=== PATIENT | male | born 1955 | race Caucasian/White ===

== ENCOUNTER 2024-04-24 14:49 | Emergency (ER) | payer BC, MEDICARE, SELFPAY ==
[2024-04-24 14:56] VITALS: BP 155/83; PULSE 79; RESP 16; TEMP 36.8; O2SAT 98; BMI 24.1
--- NOTE | 2024-04-24 16:08 | DI.US.S_ITS ---
PROCEDURE: US PERIPH VENOUS UP EXTREM LT INDICATIONS: RECENT IV LEFT FOREARM FOR CHEMOTHERAPY TECHNIQUE: Real-time imaging, as well as color and pulse Doppler interrogation, was performed of the upper extremity deep veins from the inferior neck to the antecubital fossa. COMPARISON: None. Findings and impression: Occlusive thrombus is seen in the proximal to distal forearm in the cephalic vein. Occlusive thrombus also seen in the distal upper arm in one of the brachial vein. Incidentally noted calcific plaque at the left common carotid artery bifurcation. Soft tissue edema is seen in the forearm. Dictated by: Varun Campos M.D. on 04/24/2024 at 18:01 Approved by: Varun Campos M.D. on 04/24/2024 at 18:03
--- NOTE | 2024-04-24 16:13 | ED_ITS ---
HPI - Extremity Problem <Donna Hutchison PA-C - Last Filed: 04/24/24 19:16> General Chief complaint: Extremity Problem,Nontraumatic Stated complaint: poss blood clot l arm Time Seen by Provider: 04/24/24 15:10 History of Present Illness HPI Narrative: Mr. Delong his a very pleasant 69-year-old male with a past medical history of lung cancer being treated at [facility] who presents to the emergency department for left forearm red, swelling, firmness x3 days. Patient had chemotherapy infusion in the left forearm 04/15/2024. He had no issues until a few days ago he noticed the redness/swelling. His reports that it was warm however at this time the heat has improved. Denies fevers, chills, decreased range of motion, chest pain, shortness of breath. He denies any other symptoms and feels overall in his normal state of health. He does have a remote history of left lower extremity VTE that he was placed on asprin for many years ago. 04/15/2024 chemotherapy was Carboplatin (paraplatin 623mg infusion) and Pemetrex (alimta 1000mg). Related Data Previous Rx's Medication Instructions Recorded apixaban 5 mg tablet (Eliquis) 5 mg PO BID #60 tabs 04/24/24 Review of Systems <Donna Hutchison PA-C - Last Filed: 04/24/24 19:16> Review of Systems ROS Unobtainable: All systems reviewed & are unremarkable except as noted in HPI and below Exam <Donna Hutchison PA-C - Last Filed: 04/24/24 19:16> Narrative Exam Narrative: GENERAL: 69 year old patient appears stated age. Well-developed patient, in no acute distress. HEAD: Atraumatic. Normocephalic. CARDIOVASCULAR: Regular rate. Strong radial puls BL. RESPIRATORY: ?Nonlabored respirations. ?Speaking in clear, full sentences. EXTREMITIES: Left forearm palmar aspect with an area of mild erythema and induration/firm to palpation about 10cm x 5 cm NEURO: AOx3. ?Clear speech. ?Moves all 4 extremities appropriately. 5/5 bilateral strength and sensation intact to light touch in the distribution of the radial, ulnar, median nerves. SKIN: Erythema palmar left forearm, no streaking erythema, no increased warmth. No other rashes noted. Initial Vital Signs Initial Vital Signs: Vital Signs Temperature 98.3 F 04/24/24 14:56 Pulse Rate 79 04/24/24 14:56 Respiratory Rate 16 04/24/24 14:56 Blood Pressure 155/83 H 04/24/24 14:56 Pulse Oximetry 98 04/24/24 14:56 Oxygen Delivery Method Room Air 04/24/24 14:56 <Mai Collado MD - Last Filed: 04/24/24 23:10> Initial Vital Signs Initial Vital Signs: Vital Signs Temperature 98.3 F 04/24/24 14:56 Pulse Rate 79 04/24/24 14:56 Respiratory Rate 16 04/24/24 14:56 Blood Pressure 155/83 H 04/24/24 14:56 Pulse Oximetry 98 04/24/24 14:56 Oxygen Delivery Method Room Air 04/24/24 14:56 Course <Donna Hutchison PA-C - Last Filed: 04/24/24 19:16> Orders Ordered: ED Orders 04/24/24 16:08 US periph venous up extrem lt Stat 04/24/24 19:15 BMP [Basic Metabolic Panel] Stat CBC Auto Diff [Complete Blood Count AUTO DIFF] Stat Discontinued Medications Apixaban (Apixaban 5 Mg Tablet) 10 mg PO NOW ONE Stop: 04/24/24 19:45 Last Admin: 04/24/24 19:58 Dose: 10 mg Documented By: CHHAYA Vital Signs Vital signs: Vital Signs - 8 hr 04/24/24 20:00 Pulse Rate 78 Blood Pressure 154/83 H Pulse Oximetry 94 Oxygen Delivery Method Room Air <Mai Collado MD - Last Filed: 04/24/24 23:10> Orders Ordered: ED Orders 04/24/24 16:08 US periph venous up extrem lt Stat 04/24/24 19:15 BMP [Basic Metabolic Panel] Stat CBC Auto Diff [Complete Blood Count AUTO DIFF] Stat Discontinued Medications Apixaban (Apixaban 5 Mg Tablet) 10 mg PO NOW ONE Stop: 04/24/24 19:45 Last Admin: 04/24/24 19:58 Dose: 10 mg Documented By: CHHAYA Vital Signs Vital signs: Vital Signs - 8 hr 04/24/24 20:00 Pulse Rate 78 Blood Pressure 154/83 H Pulse Oximetry 94 Oxygen Delivery Method Room Air MDM - Extremity (Nontraumatic) <Donna Hutchison PA-C - Last Filed: 04/24/24 19:16> Medical Records Medical records narrative: No records available for review. Lab Data 04/24/24 19:15 04/24/24 19:15 Labs: Lab Results 04/24/24 Range/Units 19:15 WBC 3.4 L (4.5-11.0) X10^3/uL RBC 3.38 L (4.5-5.9) X10^6/uL Hgb 10.5 L (13.5-17.5) g/dL Hct 30.6 L (41-53) % MCV 90.5 (80-100) fL MCH 31.1 (26-34) PG MCHC 34.3 (30-36) % RDW 18.1 H (11.6-14.8) % Plt Count 205 (150-400) X10^3/uL Neut % (Auto) 28.4 L (50-75) % Lymph % (Auto) 40.3 H (25-40) % [place] % (Auto) 29.8 H (3-14) % Eos % (Auto) 0.6 L (2-4) % Baso % (Auto) 0.9 (0-2) % Neut # (Auto) 1000 L (5203-9618) /uL Lymph # (Auto) 1400 (5441-7751) /uL [place] # (Auto) 1000 H (0-900) /uL Eos # (Auto) 0 (0-450) /uL Baso # (Auto) 0 (0-100) /uL Sodium 134 L (137-145) mmol/L Potassium 4.8 (3.4-5.1) mmol/L Chloride 101 (98-107) mmol/L Carbon Dioxide 26 (22-32) mmol/L BUN 20 (9-20) mg/dL Creatinine 0.91 (0.66-1.25) mg/dL Estimated GFR > 60 (>60) mL/min BUN/Creatinine Ratio 22.0 (6-22) Glucose 88 (80-110) mg/dL Calcium 9.2 (8.4-10.2) mg/dL Imaging Data Left US Venous US: Radiologist's Impression: PROCEDURE: US PERIPH VENOUS UP EXTREM LT INDICATIONS: RECENT IV LEFT FOREARM FOR CHEMOTHERAPY TECHNIQUE: Real-time imaging, as well as color and pulse Doppler interrogation, was performed of the upper extremity deep veins from the inferior neck to the antecubital fossa. COMPARISON: None. Findings and impression: Occlusive thrombus is seen in the proximal to distal forearm in the cephalic vein. Occlusive thrombus also seen in the distal upper arm in one of the brachial vein. Incidentally noted calcific plaque at the left common carotid artery bifurcation. Soft tissue edema is seen in the forearm. MDM Narrative Medical decision making narrative: 69-year-old male with a past medical history of lung cancer being treated at [facility] who presents to the emergency department for left forearm red, swelling, firmness x3 days. He had an IV/chemo in left forearm 04/15/24. 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 Differential diagnosis includes but is not limited to left arm DVT, hematoma, cellulitis, etc. On exam the patient is in no acute distress, nontoxic appearing, vital signs appropriate. On the palmar aspect of his left forearm he has an area erythema that is firm to palpation. No chest pain, no shortness of breath, no fevers. He denies need for pain medication at this time. Venous ultrasound left upper extremity ordered. Patient declines need for pain medication. Ultrasound report reveals: occlusive thrombus in the proximal to distal forearm in the cephalic vein and occlusive thrombus seen in the distal upper arm in one of the brachial veins. Ultrasound report was printed and discussed with the patient including incidental findings. Attending ED physician consulted, Dr. Collado. We will check CBC, BMP prior to initiation of Eliquis as patient has no labs on file. Patient is agreeable to the initiation of Eliquis. He denies any history of hemorrhagic stroke, recent surgery, black or bloody stool, hematuria, recent trauma, any other bleeding concerns. We discussed risks and benefits of anticoagulation. Advised patient follow up with his primary care doctor in his oncologist for further evaluation. Due to shift change, nighttime physician Dr. Collado we will review the patient's lab work and determine disposition. <Mai Collado MD - Last Filed: 04/24/24 23:10> Lab Data Labs: Lab Results 04/24/24 Range/Units 19:15 WBC 3.4 L (4.5-11.0) X10^3/uL RBC 3.38 L (4.5-5.9) X10^6/uL Hgb 10.5 L (13.5-17.5) g/dL Hct 30.6 L (41-53) % MCV 90.5 (80-100) fL MCH 31.1 (26-34) PG MCHC 34.3 (30-36) % RDW 18.1 H (11.6-14.8) % Plt Count 205 (150-400) X10^3/uL Neut % (Auto) 28.4 L (50-75) % Lymph % (Auto) 40.3 H (25-40) % [place] % (Auto) 29.8 H (3-14) % Eos % (Auto) 0.6 L (2-4) % Baso % (Auto) 0.9 (0-2) % Neut # (Auto) 1000 L (4612-3870) /uL Lymph # (Auto) 1400 (8862-9101) /uL [place] # (Auto) 1000 H (0-900) /uL Eos # (Auto) 0 (0-450) /uL Baso # (Auto) 0 (0-100) /uL Sodium 134 L (137-145) mmol/L Potassium 4.8 (3.4-5.1) mmol/L Chloride 101 (98-107) mmol/L Carbon Dioxide 26 (22-32) mmol/L BUN 20 (9-20) mg/dL Creatinine 0.91 (0.66-1.25) mg/dL Estimated GFR > 60 (>60) mL/min BUN/Creatinine Ratio 22.0 (6-22) Glucose 88 (80-110) mg/dL Calcium 9.2 (8.4-10.2) mg/dL [facility] Narrative Medical decision making narrative: 69-year-old male with a past medical history of lung cancer being treated at [facility] who presents to the emergency department for left forearm red, swelling, firmness x3 days. He had an IV/chemo in left forearm 04/15/24. 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 Differential diagnosis includes but is not limited to left arm DVT, hematoma, cellulitis, etc. On exam the patient is in no acute distress, nontoxic appearing, vital signs appropriate. On the palmar aspect of his left forearm he has an area erythema that is firm to palpation. No chest pain, no shortness of breath, no fevers. He denies need for pain medication at this time. Venous ultrasound left upper extremity ordered. Patient declines need for pain medication. Ultrasound report reveals: occlusive thrombus in the proximal to distal forearm in the cephalic vein and occlusive thrombus seen in the distal upper arm in one of the brachial veins. Ultrasound report was printed and discussed with the patient including incidental findings. Attending ED physician consulted, Dr. Collado. We will check CBC, BMP prior to initiation of Eliquis as patient has no labs on file. Patient is agreeable to the initiation of Eliquis. He denies any history of hemorrhagic stroke, recent surgery, black or bloody stool, hematuria, recent trauma, any other bleeding concerns. We discussed risks and benefits of anticoagulation. Advised patient follow up with his primary care doctor in his oncologist for further evaluation. Due to shift change, nighttime physician Dr. Collado we will review the patient's lab work and determine disposition. Dr. Collado -care of patient is signed out to me by daytime PA. independent review of patient and chart performed by myself. Ultrasound did confirm upper extremity DVT. On exam patient's compartments are soft, he was no pain with range of motion of his wrist or arm. Laboratory work shows no abnormalities with kidney or liver enzymes. Patient and informed of lab and imaging findings at bedside. Initial dose of Eliquis given to patient in the emergency department and prescription sent to pharmacy of choice. He was given an Eliquis discount card. He has upcoming appointments with his oncologist next week. Discharge Plan Departure Patient Disposition: Home Clinical Impression: Deep venous thrombosis of upper extremity Qualifiers: Affected thrombotic vein of extremity: brachial Chronicity: acute Laterality: l eft Qualified Code(s): I82.622 - Acute embolism and thrombosis of deep veins of left upper extremity Acute thrombosis of cephalic vein Qualifiers: Laterality: left Qualified Code(s): I82.612 - Acute embolism and thrombosis of superficial veins of left upper extremity Instructions: DI for Deep Vein Thrombosis Activity Restrictions/Additional Instructions: You have a blood clot in your left leg. Take the blood thinner as prescribed. This will put you at increased risk of bleeding and bruising. If you injure your head or any other part of your body please come back to the ER for repeat evaluation. If you notice bleeding in your urine or stools please come back for evaluation. Otherwise continue to follow up with your oncologist as scheduled. Prescriptions: New Eliquis 5 mg tablet 5 mg PO BID Qty: 60 0RF Rx Instructions: take 10mg po BID for 7 days, and then 5mg po BID onwards Stand Alone Forms: Patient Portal/API/Survey
[2024-04-24 19:23] LABS: Add Manual Diff / Slide Review NO; Basophils Absolute Auto 0 /uL (0-100); Basophils Percent Auto 0.9 % (0-2); Eosinophils Absolute Auto 0 /uL (0-450); Eosinophils Percent Auto 0.6 % (2-4); Hematocrit 30.6 % (41-53); Hemoglobin 10.5 g/dL (13.5-17.5); Lymphocytes Absolute Auto 1400 /uL (1100-4500); Lymphocytes Percent Auto 40.3 % (25-40); Mean Corpuscular HGB Conc 34.3 % (30-36); Mean Corpuscular Hemoglobin 31.1 PG (26-34); Mean Corpuscular Volume 90.5 fL (80-100); Monocytes Absolute Auto 1000 /uL (0-900); Monocytes Percent Auto 29.8 % (3-14); Neutrophils Absolute Auto 1000 /uL (1500-7000); Neutrophils Percent Auto 28.4 % (50-75); Platelet Count 205 X10^3/uL (150-400); Red Blood Cell Count 3.38 X10^6/uL (4.5-5.9); Red Cell Distribution Width 18.1 % (11.6-14.8); White Blood Cell Count 3.4 X10^3/uL (4.5-11.0)
[2024-04-24 19:34] LABS: Blood Urea Nitrogen 20 mg/dL (9-20); Calcium 9.2 mg/dL (8.4-10.2); Carbon Dioxide 26 mmol/L (22-32); Chloride 101 mmol/L (98-107); Estimated Glomerular Filt Rate > 60 mL/min (>60); Glucose 88 mg/dL (80-110); HEMOLYSIS < 15 (0-50); Potassium 4.8 mmol/L (3.4-5.1); Sodium 134 mmol/L (137-145)
[2024-04-24] MEDS: APIXABAN 5 MG TABLET 10 MG PO (19:58)
[2024-04-24 20:00] VITALS: BP 154/83; PULSE 78; O2SAT 94
== END 2024-04-24 20:00 | disposition home or self-care (01) ==
PROVIDERS: Emergency Provider Physician Assistant
DX: I82.622 Acute embolism and thrombosis of deep veins of left upper extremity (principal); I82.612 Acute embolism and thrombosis of superficial veins of left upper extremity; Z79.01 Long term (current) use of anticoagulants; C34.90 Malignant neoplasm of unspecified part of unspecified bronchus or lung
CPT/HCPCS: 80048; 85025; 93971; 99283; 99284

== ENCOUNTER 2025-03-01 08:45 | Emergency (ER) | payer BC, MEDICARE, SELFPAY ==
[2025-03-01] VITALS (7 sets, daily range): BP systolic 122–166; BP diastolic 65–72; PULSE 58–71; RESP 14–18; TEMP 36.7; O2SAT 96–100; BMI 24.4
--- NOTE | 2025-03-01 09:13 | ED.ABDPAIN ---
HPI - Abdominal Pain General Chief Complaint: Abdominal Pain Stated Complaint: Swollen prostate x 12 hrs Time Seen by Provider: 03/01/25 08:47 Source: patient Mode of arrival: Ambulatory History of Present Illness HPI narrative: 69-year-old gentleman past medical history of lung cancer and prostate cancer who being treated at [facility] presents with abdominal distention decreased urine output despite being on Flomax unable to fully empty his bladder. This has happened only 1 other time back in 2023 he was diagnosed with bladder cancer. He denies any fever, chills, nausea, vomiting, diarrhea, constipation, rectal bleeding, back pain. Other than what is stated 14 point review of system is negative. Related Data Previous Rx's ?Medication ?Instructions ?Recorded apixaban 5 mg tablet (Eliquis) 5 mg PO BID #60 tabs 04/24/24 Allergies Allergy/AdvReac Type Severity Reaction Status Date / Time No Known Drug Allergies Allergy Verified 03/01/25 08:56 Review of Systems Review of Systems ROS Unobtainable: All systems reviewed & are unremarkable except as noted in HPI and below Patient History Social History Smoking Status: Never smoker Smoking Status: Never smoker Exam Narrative Exam Narrative: GENERAL: [69] year old patient appears stated age. Well-developed patient, in mild distress. HEAD: Atraumatic. Normocephalic. EYES: Pupils equal round and reactive. Extraocular motions intact. No scleral icterus. No injection or drainage. NECK: Trachea midline. Non tender CARDIOVASCULAR: Regular rate and rhythm without murmurs, gallops, or rubs. RESPIRATORY: Clear to auscultation. Breath sounds equal bilaterally. No wheezes, rales, or rhonchi. GASTROINTESTINAL: Abdomen soft, suprapubic area distended. EXTREMITIES: No edema or joint tenderness. BACK: Nontender without deformity or crepitance. No flank tenderness. NEURO: AOx3. SKIN: No rash or erythema of visible areas Initial Vital Signs Initial Vital Signs: Vital Signs Temperature 98.1 F 03/01/25 08:56 Pulse Rate 71 03/01/25 08:56 Respiratory Rate 18 03/01/25 08:56 Blood Pressure 166/72 H 03/01/25 08:56 Pulse Oximetry 99 03/01/25 08:56 Oxygen Delivery Method Room Air 03/01/25 08:56 Course Orders Ordered: ED Orders 03/01/25 09:02 Urinalysis and Microscopic Stat Vital Signs Vital signs: Vital Signs - 8 hr 03/01/25 08:56 Temperature 98.1 F Pulse Rate 71 Respiratory Rate 18 Blood Pressure 166/72 H Pulse Oximetry 99 Oxygen Delivery Method Room Air MDM - Abdominal Pain Lab Data Labs: Lab Results 03/01/25 Range/Units 09:02 Urine Color Yellow Urine Appearance Clear Urine pH 5.5 (4.5-8.0) Ur Specific [place] 1.010 (1.000-1.035) Urine Protein Negative (Negative) Urine Glucose (UA) Negative (Negative) g/dL Urine Ketones Negative (NEGATIVE) Urine Occult Blood 1+ H (Negative) Urine Nitrate Negative (Negative) Urine Bilirubin Negative (NEGATIVE) Urine Urobilinogen 0.2 (0.2) E.U./dL Ur Leukocyte Esterase Negative (NEGATIVE) Urine RBC 1-5/hpf (0-5/HPF) Urine WBC 0-1/hpf (0-5/HPF) Ur Squamous Epith Cells 0-1 /hpf (0-5/HPF) Urine Bacteria None seen (None) Ur Culture Indicated? Cult not indicated Vol Urine Centrifuged 10ml (spun) MDM Narrative Medical decision making narrative: All lab work, vital signs, nurse triage note, medication list, previous ER visits, and all imaging studies reviewed. Carmona catheter placed after it drained over 1750ml. Urine showed +1 blood occult blood otherwise negative. Flomax already taken. Patient will follow up with urologist. Discharge Plan Departure Patient Disposition: Home Clinical Impression: Acute urinary retention Instructions: DI for Urinary Retention in Men Activity Restrictions/Additional Instructions: Return with new or worsening symptoms. 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 Already on flomax. Prescriptions: No Action Eliquis 5 mg tablet 5 mg PO BID Qty: 60 0RF Rx Instructions: take 10mg po BID for 7 days, and then 5mg po BID onwards Referrals: Hamilton Haywood DO [Physician, Urology] Stand Alone Forms: Patient Portal/API
[2025-03-01 09:18] LABS: Appearance Urine UA CLEAR; Bilirubin Urine UA NEGATIVE (NEGATIVE); Color Urine UA YELLOW; Glucose Urine UA NEGATIVE (Negative); Ketones Urine UA NEGATIVE (NEGATIVE); Leukocyte Esterase Urine UA NEGATIVE (NEGATIVE); Nitrite Urine UA NEGATIVE (Negative); Occult Blood Urine UA 1+ (Negative); Protein Urine UA NEGATIVE (Negative); Specific Gravity Urine UA 1.010 (1.000-1.035); Urobilinogen Urine UA 0.2 E.U./dL (0.2); pH Urine UA 5.5 (4.5-8.0)
[2025-03-01 09:31] LABS: Culture Indicated Urine Cult Not Indicated
== END 2025-03-01 11:00 | disposition home or self-care (01) ==
PROVIDERS: Emergency Provider Family Medicine
DX: R33.9 Retention of urine, unspecified (principal)
CPT/HCPCS: 51702; 81001; 99283